=== PATIENT | female | born 1990 | race American Indian/Alaskan Native ===

== ENCOUNTER 2016-11-22 05:00 | Outpatient (CLI) | payer MEDICAID ==
[2016-11-22] MEDS ORDERED: LACTATED RINGERS 500 ML IV ONE (05:03)
[2016-11-22 05:50] VITALS: BP 129/77
[2016-11-22 05:50] LABS: Bilirubin,Urine NEG (Negative); Blood,Urine NEG (Negative); Ketones,Urine 80 mg/dL (Negative); Leukocyte Esterase,Urine NEG (Negative); Mucus,Urine FEW /HPF; Nitrite,Urine NEG (Negative)
== END 2016-11-22 06:11 | disposition home or self-care (01) ==
LOC: TRG 05:00
PROVIDERS: ATTEND Obstetrics & Gynecology
DX: O47.03 False labor before 37 completed weeks of gestation, third trimester (principal); Z3A.36 36 weeks gestation of pregnancy
CPT/HCPCS: 59025; 81001

== ENCOUNTER 2017-09-21 16:26 | Emergency (ER) | payer MEDICAID, OTHER ==
[2017-09-21 16:47] VITALS: BP 120/72
--- NOTE | 2017-09-21 18:11 | XRay Report ---
FINAL REPORT PROCEDURE: XR ANKLE 3+V LT TECHNIQUE: LEFT ankle radiographs, AP, lateral, and oblique views. CPT 18855 HISTORY: Left ankle injury and pain. COMPARISON: Left foot radiographs dated same day and time. FINDINGS: Fracture (s) and/or Dislocation(s): None. Alignment: Normal. Joint space(s): Normal. Soft tissues: Normal. Bone mineralization: Normal. Foreign bodies: None. Calcaneal spurring: Minimal calcaneal spurring. IMPRESSION: No radiographic evidence of displaced fracture.
--- NOTE | 2017-09-21 18:12 | XRay Report ---
FINAL REPORT PROCEDURE: XR FOOT 3+V LT TECHNIQUE: LEFT foot radiographs, AP, lateral, and oblique views. CPT 48723 HISTORY: Left foot pain and swelling. COMPARISON: Left ankle radiographs dated same day and time FINDINGS: Fracture (s) and/or Dislocation(s): Linear lucencies seen about the proximal metatarsals on AP and oblique views. Alignment: Normal . Joint space(s): Normal . Soft tissues: Normal . Bone mineralization: Normal . Foreign bodies: None . Calcaneal spurring: Minimal calcaneal spurring. IMPRESSION: Linear lucencies seen about the proximal metatarsals on AP and oblique views, felt to more likely be related to a overlying structures rather than fractures. Consider further evaluation and followup with CT scan if this is of continued clinical concern.
--- NOTE | 2017-09-21 19:30 | Emergency Department Report ---
ED Lower Extremity HPI - General Chief Complaint: Extremity Injury, Lower Stated Complaint: ANKLE/FOOT PAIN Time Seen by Provider: 09/21/17 19:28 Source: patient Mode of arrival: Ambulatory Limitations: No Limitations - History of Present Illness Initial Comments: This is a 26 y.o. female that presents with left ankle and foot pain from fall 4 days ago. Patient states she was walking down a hill at her aunt house and her foot slipped from under her. She felt a her left ankle twist. She can not recall which direction her foot went. She put ice on it and elevated but the pain remains 10/10 on pain scale. She is unable to bear weight or move toes 3- 4. Reports pain is worse with movement, touch, and walking. Denies numbness, tingling, redness, or deformity. MD Complaint: ankle injury (left), foot injury (left) -: days(s) (4) Injury: Ankle: Left, Foot: Left Type of Injury: unknown Place: street/outdoors Severity: severe Severity scale (0 -10): 10 Improves With: nothing Worsens With: weight bearing, movement, palpation Context: fall Associated Symptoms: swelling, unable to bear weight, ambulatory. denies: snap/ pop sensation, numbness, tingling, able to partially bear weight Treatments Prior to Arrival: cold therapy, NSAIDS - Related Data Previous Rx's Medication Instructions Recorded Last Taken Type Cyclobenzaprine HCl [Flexeril 5 MG 5 mg PO TID PRN #20 tab 09/21/17 Unknown Rx TAB] Ibuprofen 800 mg PO Q6H PRN #20 tablet 09/21/17 Unknown Rx Allergies Allergy/AdvReac Type Severity Reaction Status Date / Time No Known Allergies Allergy Verified 11/22/16 05:03 ED Review of Systems ROS: Stated complaint: ANKLE/FOOT PAIN Other details as noted in HPI Constitutional: denies: chills, fever, malaise Respiratory: denies: cough, shortness of breath, wheezing Cardiovascular: denies: chest pain, palpitations Gastrointestinal: denies: abdominal pain, nausea, diarrhea Musculoskeletal: joint swelling (left ankle), arthralgia (left ankle and foot pain from fall). denies: back pain Skin: denies: rash, lesions, change in color, pruritus Neurological: abnormal gait (unable to bear weight to left foot 2/2 pain). denies: headache, weakness, numbness, paresthesias Psychiatric: denies: anxiety, depression ED Past Medical Hx - Past Medical History Previous Medical History?: Yes Hx Hypertension: No Hx Diabetes: No Hx Deep Vein Thrombosis: No Hx Renal Disease: No Hx Sickle Cell Disease: No Hx Seizures: No Hx Asthma: No Hx HIV: No (possible exposure w/ this ) - Surgical History Past Surgical History?: No - Social History Smoking Status: Current Some Day Smoker Substance Use Type: Alcohol, Marijuana - Medications Home Medications: Home Medications Medication Instructions Recorded Confirmed Last Taken Type Cyclobenzaprine HCl [Flexeril 5 MG 5 mg PO TID PRN #20 tab 09/21/17 Unknown Rx TAB] Ibuprofen 800 mg PO Q6H PRN #20 tablet 09/21/17 Unknown Rx ED Physical Exam - General Limitations: No Limitations General appearance: alert, in no apparent distress - Respiratory Respiratory exam: Present: normal lung sounds bilaterally. Absent: respiratory distress - Cardiovascular Cardiovascular Exam: Present: regular rate, normal rhythm, normal heart sounds. Absent: systolic murmur, diastolic murmur, rubs, gallop - GI/Abdominal GI/Abdominal exam: Present: soft, normal bowel sounds. Absent: distended, tenderness, guarding, rebound, rigid, organomegaly, mass - Extremities Exam Extremities exam: Present: normal inspection, normal capillary refill, joint swelling. Absent: pedal edema - Expanded Lower Extremity Exam Left Hip exam: Present: normal inspection, full ROM Upper Leg exam: Present: normal inspection, full ROM Knee exam: Present: normal inspection, full ROM Lower Leg exam: Present: normal inspection, full ROM Ankle exam: Present: tenderness, swelling. Absent: full ROM (limited to pain), abrasion, laceration, ecchymosis, deformity, crepidus, dislocation, erythema, anterior draw sign Foot/Toe exam: Present: tenderness (unable to tolerate passive or active ROM). Absent: full ROM (limited ROM to pain), abrasion, laceration, ecchymosis, deformity, crepidus, dislocation, erythema, amputation, puncture wound, foreign body, nail avulsion, subungual hematoma - Neurological Exam Neurological exam: Present: alert, oriented X3, abnormal gait (partial weight bearing to LLE) - Psychiatric Psychiatric exam: Present: normal affect, normal mood - Skin Skin exam: Present: warm, dry, intact, normal color. Absent: rash ED Course Vital Signs 09/21/17 16:44 Temperature 98 F Pulse Rate 80 Respiratory 20 Rate Blood Pressure 120/72 O2 Sat by Pulse 18 L Oximetry ED Lower Extremity MDM - Radiology Data Radiology results: report reviewed Xray of ankle: IMPRESSION: No radiographic evidence of displaced fracture. Xray of foot: Need CT for further evaluation. CT of left foot IMPRESSION: No acute abnormality - Medical Decision Making This is a 26 y.o. female that presents with left ankle and foot pain from fall. Patient is stable and examined by me and Dr. Hutton. Xray of ankle and foot obtained and normal ankle exam and f/u with CT for foot. CT of left foot IMPRESSION: No acute abnormality. Vitals stable. No acute signs of distress noted. Applied acewrap and ordered crutches. Patient educated on using crutches. Discussed plan to start ibuprofen and flexeril for left foot sprain with patient. Patient agrees to ED plan of care. Discharged home with crutches. Follow up with PCP in 2-3 days. Critical care attestation.: If time is entered above; I have spent that time in minutes in the direct care of this critically ill patient, excluding procedure time. ED Disposition Clinical Impression: Acute pain of left foot Sprain of left foot Qualifiers: Encounter type: initial encounter Qualified Code(s): S93.602A - Unspecified sprain of left foot, initial encounter Disposition: TO HOME OR SELFCARE Is pt being admited?: No Does the pt Need Aspirin: No Condition: Stable Instructions: Foot Sprain (ED), Ankle Exercises (GEN) Additional Instructions: Rest Use ice or heat on affected area for 20 minutes and off for 2 hours. Take pain medication as needed for pain. Don't drive or operate heavy machinery while taking muscle relaxers because they may cause drowsiness. Follow up with Primary Care Provider. Prescriptions: Cyclobenzaprine HCl [Flexeril 5 MG TAB] 5 mg PO TID PRN #20 tab PRN Reason: Muscle Spasm Ibuprofen 800 mg PO Q6H PRN #20 tablet PRN Reason: Pain Referrals: [facility] [Outside] - 3-5 Days [facility] [Outside] - 3-5 Days [facility] [Outside] - 3-5 Days Forms: Work/School Release Form(ED) Time of Disposition: 21:37 Print Language: SENEGALESE
--- NOTE | 2017-09-21 20:43 | Cat Scan Report ---
FINAL REPORT PROCEDURE: CT LOWER EXTREMITY LT WO CON TECHNIQUE: Computerized axial tomography of the LEFT foot was performed without contrast. HISTORY: left foot pain, f/u CT of xray COMPARISON: No prior studies are available for comparison. FINDINGS: Bony structures including marrow spaces: Normal. Neurovascular structures: Normal. Soft tissues: Normal. Joint space: Normal. IMPRESSION: No acute abnormality
== END 2017-09-21 21:49 | disposition home or self-care (01) ==
LOC: ED 16:26
DX: S93.602A Unspecified sprain of left foot, initial encounter (principal); F17.200 Nicotine dependence, unspecified, uncomplicated; F12.10 Cannabis abuse, uncomplicated; W17.89XA Other fall from one level to another, initial encounter; Y93.89 Activity, other specified; Y92.89 Other specified places as the place of occurrence of the external cause; Y99.8 Other external cause status
CPT/HCPCS: 99284